=== PATIENT | female | born 1960 | race Caucasian/White ===

== ENCOUNTER 2018-08-09 08:34 | Outpatient (CLI) | payer BC | END 2018-08-09 20:20 | disposition home or self-care (01) | LOC: SMA 08:34 | PROVIDERS: ATTEND Family Medicine | DX: Z12.31 Encounter for screening mammogram for malignant neoplasm of breast (principal) | CPT/HCPCS: 77067 ==

== ENCOUNTER 2021-08-26 09:10 | Outpatient (CLI) | payer BC | END 2021-08-26 20:14 | disposition home or self-care (01) | LOC: SMA 09:10 | PROVIDERS: ATTEND Family Medicine | DX: Z12.31 Encounter for screening mammogram for malignant neoplasm of breast (principal) | CPT/HCPCS: 77067 ==